=== PATIENT | male | born 1975 | race Two or more races ===

== ENCOUNTER 2021-11-01 14:55 | Emergency (ER) | payer MEDICAID, OTHER ==
[~2021-11-01] VITALS: Ht 180.3 cm; Wt 90.7 kg
[2021-11-01 14:56] VITALS: BP 125/80
== END 2021-11-01 19:59 | disposition left against medical advice (07) ==
LOC: ER 14:55
DX: H57.89 Other specified disorders of eye and adnexa (principal); Z53.21 Procedure and treatment not carried out due to patient leaving prior to being seen by health care provider